=== PATIENT | female | born 1950 | race Caucasian/White ===

== ENCOUNTER 2024-10-20 08:29 | Emergency (ER) | payer MEDICARE, OTHER, SELFPAY ==
[2024-10-20 08:35] VITALS: BP 165/78
[2024-10-20 09:12] VITALS: BP 113/67; BP 114/69; BP 116/69; PULSE 48; PULSE 50; PULSE 53
[2024-10-20 09:13] VITALS: BMI 30.7
--- NOTE | 2024-10-20 09:13 | ED.GENMED ---
History of Present Illness
General
Chief Complaint: Nasal Problem
Source: patient
Time Seen by Provider: 10/20/24 09:00
History of Present Illness
History of Present Illness:
74-year-old female with past medical history of coronary artery disease status postcardiac stent, hypercholesterolemia and hypothyroidism presenting to the emergency department for evaluation after she had an unwitnessed syncopal event while in the
bathroom earlier this morning stating that she was in her shower when she started to feel lightheaded and as if she were going to pass out, attempted to get out of the shower and then syncopized striking her face onto the ground. Patient now with
swelling and pain to the nasal bridge, also noting some dried blood to the bilateral nares. Patient does endorse a slight headache. Prior to syncope she did not experience any palpitations but states she did have some palpitations while in the
waiting room here at the emergency room. She denies any fevers or recent illnesses, bowel changes or urinary symptoms, chest pain, shortness of breath, cough or any other concerns. 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 Garza, about 2
weeks ago and was given 'a [place]ub bill of health'.
Past History
Past History
ED Past Medical History: CAD, Hypercholesterolemia and Hypothyroidism
ED Past Surgical History: Cardiac and Other
Social History
Tobacco: Non-smoker
Alcohol: None
Drug: None
Living: with family
Review of Systems
Review of Systems
All Other Systems: ROS reviewed and negative except as documented in HPI and ROS
Phy Exam
Physical Exam
Physical Exam:
GENERAL: Alert , in no apparent distress
HEAD: soft tissue edema over nasal bridge with ttp
EYE: clear conjunctiva
NECK: Supple, no midline ttp
ENT: o/p clr, mmm.dried blood bilateral nares, no septal hematoma
CARDIAC: Bradycardic rate and rhythm, no murmur.
LUNGS: Clear breath sounds bilaterally, no acute respiratory distress, no wheezes/rales/rhonchi
ABDOMEN: Soft, without focal tenderness, no r/g, no cvat
NEUROLOGICAL: Alert and oriented
SKIN: Warm and dry, skin intact.
MUSCULOSKELETAL: No edema, well perfused.
PSYCH: Normal and appropriate interaction.
Scores
Heart Failure Risk
Heart Failure Risk Score: Not Applicable
Heart Score for Chest Pain Patients
STEMI patient?: Not applicable
Withdrawal Assessment of Alcohol
Withdrawal Assessment Completed?: Not applicable
Course
Orders/Labs/Results
Orders:
Orders
10/20/24 08:40
EKG [Electrocardiogram (*1)] Urgent
Reason for Study: Syncope
10/20/24 08:41
EKG- Treatment ONCE
10/20/24 09:12
CT Facial Bones W/o Iv Contras Urgent
Comment:
Reason For Exam: syncope, facial/nasal trauma
CT Head W/o Iv Contrast Urgent
Comment:
Reason For Exam: syncope, head trauma
Orthostatic VS- Treatment ONCE
0.9% Sodium Chloride 1000 ml [Nss] 1,000 ml IV BOLUS
10/20/24 09:18
Acetaminophen [Tylenol] 1,000 mg PO NOW STA
10/20/24 09:34
Basic Metabolic Panel Urgent
Complete Blood Count/With Diff Urgent
Abnormal Lab Results
10/20/24
09:34
Hct 47.7 H %
(37.0-47.0)
MCH 31.3 H pg
(27.0-31.0)
BUN 25 H mg/dl
(7-17)
10/20/24 09:34
10/20/24 09:34
Vital Signs
Initial and Last Documented VS:
Initial Vital Signs
Temp Pulse Resp BP Pulse Ox
98.2 F 51 16 165/78 98
10/20/24 08:35 10/20/24 08:35 10/20/24 08:35 10/20/24 08:35 10/20/24 08:35
Last Documented Vital Signs
Temp Pulse Resp BP Pulse Ox
98.2 F 57 18 165/78 99
10/20/24 08:35 10/20/24 09:04 10/20/24 09:04 10/20/24 08:35 10/20/24 09:04
MDM/Problems Addressed
Differential Diagnosis Includes:
Symptomatic bradycardia, orthostasis, vagal event, tachybradycardia syndrome, electrolyte derangement
MDM/Problems Addressed:
74-year-old female presenting to the emergency department for evaluation following a syncopal episode earlier this morning, patient did have prodromal symptoms prior to syncopizing. She was found to be bradycardic here with a rate around 46 to 53
bpm on telemetry. She has not had any fevers or infectious symptoms, no symptoms to suggest hypovolemia. No recent medication changes although patient is on Cardizem as part of her cardiac regimen. No beta-blockers. Will keep patient on
telemetry. Labs ordered. CT of the head and facial bones ordered. Reassessment following
*Radiology
Radiology exam reviewed: radiology read reviewed
*Pulse Oximetry
Patient hypoxic: no
*EKG
Interpreted by ED Provider?: Yes
Comparison EKG: no comparison EKG present
Heart Rate: 46
Rate: bradycardiac
Rhythm: sinus
[place]: normal axis
*Overhead Crane Truck Loader Interpretation
Rate: bradycardiac
Rhythm: sinus
*Critical Care Note
Total Time (30-74mins, 75-104mins- exclusive of procedures): Not Applicable
Patient Management
Escalation/DeEscalation of care consider admission/obs:
Patient CT of the head without any acute abnormalities. CT of the facial bones does show a nondisplaced nasal septum fracture. I reviewed nasal fracture precautions with the patient. Information for ENT was provided. Patient will follow-up with
primary care provider. Her heart rate remains in the mid to low 50s. She is aware of return precautions to the ER.
ED Attending Note
-
Portions of this chart may have been created with voice recognition software.� Occasional wrong word or��sound alike� substitutions may have occurred due to the inherent limitations of voice recognition software.
Discharge Plan
Departure
Patient Disposition: Home (Routine Discharge)
Date of Disposition: 10/20/24
Time of Disposition: 11:11
Patient with high blood pressure during this ER visit?: Yes
Discharge Problem:
Syncope, Closed fracture nasal bone
Instructions: Nose Fracture (DC), Syncope (fainting) - Discharge instructions
Referrals:
Chaz Kowalski MD [Active] - (ENT)
Andrew Munguia MD [Family Provider] -
Interventions
Interventions:
*Risk Screen - Suicide Last Done: 10/20/24 08:35
*General Assessment Last Done: 10/20/24 11:32
*Neglect/Abuse Screening Last Done: 10/20/24 08:35
ED- Fall Risk Assessment Last Done: 10/20/24 09:15
*ED COVID-19 Vaccine History Last Done: 10/20/24 11:32
*Nursing Disposition Last Done: 10/20/24 11:32
ED-EENT Assessment Last Done: 10/20/24 09:15
Discharge Date and Time
Discharge Date/Time: 10/20/24 11:35
Print Language: HEBREW
[2024-10-20] MEDS: TYLENOL 1000 MG PO (09:29)
[2024-10-20] MEDS: NSS 1000 IV (09:31)
[2024-10-20 09:54] LABS: % Basophils 1.2 % (0-2); % Eosinophils 2.3 % (0-6); % Immature Granulocytes 0.4 % (0-0.5); % Lymphocytes 28.2 % (20.5-51.1); % Monocytes 6.4 % (1.7-9.3); % Neutrophils 61.5 % (42.2-75.2); Absolute Basophils 0.1 10^3/uL (0-0.2); Absolute Eosinophils 0.2 10^3/uL (0-0.7); Absolute Lymphocytes 2.6 10^3/uL (1.2-3.4); Absolute Monocytes 0.6 10^3/uL (0.1-0.6); Absolute Neutrophils 5.5 10^3/uL (1.4-6.5); Hematocrit 47.7 % (37.0-47.0); Hemoglobin 15.9 g/dL (12.0-16.0); Mean Corp Hgb Conc. 33.3 g/dL (33.0-37.0); Mean Corpuscular Hgb 31.3 pg (27.0-31.0); Mean Corpuscular Volume 93.9 fL (81.0-99.0); Mean Platelet Volume 10.2 fL (7.4-10.4); Nucleated Red Blood Cells % 0 %; Platelet Count 292 10^3/uL (130-400); Red Blood Cell Count 5.08 10^6/uL (4.20-5.40)
[2024-10-20 09:59] LABS: Blood Urea Nitrogen 25 mg/dl (7-17); Calcium 9.4 mg/dl (8.4-10.2); Carbon Dioxide 28 mmol/L (22-30); Chloride 100 mmol/L (98-107); Estimated Creatinine Clearance 37 ml/min; Glucose 97 mg/dl (70-99); Potassium 4.4 mmol/L (3.5-5.1); Sodium 138 mmol/L (135-145); eGFR 59.86
== END 2024-10-20 11:35 | disposition home or self-care (01) ==
LOC: EMR 08:29
PROVIDERS: Physician Assistant Medical; EMERGENCY PHYSICIAN Emergency Medicine; FAMILY PHYSICIAN Family Medicine
DX: R55 Syncope and collapse (principal); S02.2XXA Fracture of nasal bones, initial encounter for closed fracture; R00.2 Palpitations; W18.39XA Other fall on same level, initial encounter; R03.0 Elevated blood-pressure reading, without diagnosis of hypertension; I25.10 Atherosclerotic heart disease of native coronary artery without angina pectoris; Z95.5 Presence of coronary angioplasty implant and graft; E03.9 Hypothyroidism, unspecified; E78.00 Pure hypercholesterolemia, unspecified
CPT/HCPCS: 99284; 96360; 70450; 70486; 80048; 85025; 93005

== ENCOUNTER 2025-01-31 17:02 | Emergency (ER) | payer MEDICARE, OTHER, SELFPAY ==
[2025-01-31 17:04] VITALS: BMI 29.8
[2025-01-31 17:08] VITALS: BP 134/82
[2025-01-31 17:20] LABS: % Basophils 0.9 % (0-2); % Eosinophils 1.4 % (0-6); % Immature Granulocytes 0.2 % (0-0.5); % Lymphocytes 24.4 % (20.5-51.1); % Monocytes 5.7 % (1.7-9.3); % Neutrophils 67.4 % (42.2-75.2); Absolute Basophils 0.1 10^3/uL (0-0.2); Absolute Eosinophils 0.1 10^3/uL (0-0.7); Absolute Lymphocytes 2.4 10^3/uL (1.2-3.4); Absolute Monocytes 0.6 10^3/uL (0.1-0.6); Absolute Neutrophils 6.7 10^3/uL (1.4-6.5); Hematocrit 43.7 % (37.0-47.0); Hemoglobin 15.2 g/dL (12.0-16.0); Mean Corp Hgb Conc. 34.8 g/dL (33.0-37.0); Mean Corpuscular Hgb 31.1 pg (27.0-31.0); Mean Corpuscular Volume 89.5 fL (81.0-99.0); Mean Platelet Volume 10.1 fL (7.4-10.4); Nucleated Red Blood Cells % 0 %; Platelet Count 262 10^3/uL (130-400); Red Blood Cell Count 4.88 10^6/uL (4.20-5.40); Red Cell Dist. Width 13.4 % (11.5-14.5); White Blood Cell Count 9.9 10^3/uL (4.8-10.8)
--- NOTE | 2025-01-31 17:31 | ED.GENMED ---
History of Present Illness
General
Chief Complaint: Dizziness
Time Seen by Provider: 01/31/25 17:30
History of Present Illness
History of Present Illness:
TIME OF INITIAL ENCOUNTER: 5:35 PM
HPI: Patient came in by ambulance from home complaining of dizziness that started this afternoon while watching the [employer] game while laying on the couch. Certain head position changes makes the symptoms worse. She started vomiting. Last month
she had a less severe vertiginous episode but also fell at that time breaking her nose. She still has ongoing nausea. No chest pain. Only other thing different today is that she did have a [employer] ([employer] cold brew today.
EXAM:
GENERAL: Well appearing in no distress
HEENT: Moist oral mucosa
CARDIOVASCULAR: No murmurs, normal heart rate, regular rhythm, No chest wall tenderness
PULMONARY: No respiratory distress, breath sounds are clear and equal
ABDOMEN: Soft with no peritoneal signs, no tenderness
NEUROLOGIC: Excellent strength all extremities, no coordination deficits, normal finger-nose testing bilaterally
PSYCHIATRIC: Appropriate mental status, normal insight and judgement
EXTREMITIES: Nontender, no edema, moves all extremities equally
SKIN: No rash, no lesions
NUMBER AND COMPLEXITY OF PROBLEMS ADDRESSED AT THE ENCOUNTER
� Chronic conditions affecting care: CAD, hypercholesterolemia, hypothyroidism
� Acute Exacerbation and/or Progression of Chronic Illness:
� Differential Diagnosis includes:
AMOUNT AND/OR COMPLEXITY OF DATA TO BE REVIEWED AND ANALYZED
� I performed an independent evaluation of and my interpretation is:
EKG: Sinus 65, nonspecific ST abnormality no significant change from 10/20/2024
CT: CT head shows no acute abnormality
X-rays:
Laboratory Studies: CBC normal chemistries unremarkable
Other:
� Review of other/old records: CAT scan of the head and facial bones showed no acute intracranial abnormality but showed a nasal bone fracture in October of this year
� Clinical information was obtained by an independent historian: Spoke to
� Prescriptions/Medications Considered but not given:
� Further testing considered but not performed:
RISK OF COMPLICATIONS AND/OR MORBIDITY OR MORTALITY OF PATIENT MANAGEMENT
� Social determinants of health affecting care: Lives at home
� Discussion with other providers:
� Escalation of care including admission/observation vs risk of discharge considered: The patient was able to walk to the bathroom without significant assistance. Will give low-dose Valium, fluids, Zofran and given her age with
rather significant symptoms associate with vomiting will obtain CT imaging of the brain.
ANY OTHER UPDATES:
7:30 PM: I reassessed patient. She feels somewhat improved after Valium and Zofran given. Workup is unremarkable. She does question if the [employer] cold brew was a contributing factor. She feels comfortable with going home and wants to go home
at this time. [place] was only borderline positive
Past History
Past History
ED Past Medical History: CAD, Hypercholesterolemia and Hypothyroidism
ED Past Surgical History: Cardiac and Other
Social History
Tobacco: Non-smoker
Alcohol: None
Drug: None
Living: with family
Phy Exam
Physical Exam
Physical Exam:
See HPI
Course
Orders/Labs/Results
Orders:
Orders
01/31/25 17:09
EKG [Electrocardiogram (*1)] Urgent
Reason for Study: Vertigo / Dizzy
EKG- Treatment ONCE
01/31/25 17:10
Basic Metabolic Panel Urgent
01/31/25 17:11
CBC/With Diff [Complete Blood Count/With Diff] Urgent
01/31/25 17:41
0.9% Sodium Chloride 1000 ml [Nss] 1,000 ml IV BOLUS
Ondansetron Injectable [Zofran] 4 mg IV NOW STA
diazePAM [Valium Injection] 2 mg IV NOW STA
01/31/25 17:42
CT Head W/o Iv Contrast Urgent
Comment:
Reason For Exam: acute vertigo vomiting severe
Abnormal Lab Results
01/31/25 01/31/25
17:10 17:11
MCH 31.1 H pg
(27.0-31.0)
Absolute Neuts (auto) 6.7 H 10^3/uL
(1.4-6.5)
BUN 23 H mg/dl
(7-17)
Glucose 101 H mg/dl
(70-99)
01/31/25 17:11
01/31/25 17:10
Vital Signs
Initial and Last Documented VS:
Initial Vital Signs
BP
134/82
01/31/25 17:08
Last Documented Vital Signs
Pulse Resp BP Pulse Ox
80 15 111/74 99
01/31/25 18:45 01/31/25 18:45 01/31/25 18:00 01/31/25 18:45
*Critical Care Note
Total Time (30-74mins, 75-104mins- exclusive of procedures): Not Applicable
ED Attending Note
-
Portions of this chart may have been created with voice recognition software.� Occasional wrong word or��sound alike� substitutions may have occurred due to the inherent limitations of voice recognition software.
Discharge Plan
Departure
Referrals:
Andrew Munguia MD [Family Provider] -
Interventions
Interventions:
*Risk Screen - Suicide Last Done: 01/31/25 17:04
*General Assessment Last Done: 01/31/25 17:04
*Neglect/Abuse Screening Last Done: 01/31/25 17:04
ED- Neurological Assessment Last Done: 01/31/25 17:13
ED- Cardiac Assessment Last Done: 01/31/25 17:13
ED Swallowing Screen Last Done: 01/31/25 17:13
Discharge Date and Time
Print Language: MOHAWK
[2025-01-31 17:38] LABS: Blood Urea Nitrogen 23 mg/dl (7-17); Calcium 9.3 mg/dl (8.4-10.2); Carbon Dioxide 23 mmol/L (22-30); Chloride 105 mmol/L (98-107); Estimated Creatinine Clearance 43 ml/min; Glucose 101 mg/dl (70-99); Sodium 139 mmol/L (135-145); eGFR > 60.00
[2025-01-31] MEDS: VALIUM INJECTION 2 MG IV (17:50)
[2025-01-31] MEDS: ZOFRAN 4 MG IV (17:50)
[2025-01-31] MEDS: NSS 1000 IV (17:52)
[2025-01-31 18:00] VITALS: BP 111/74
== END 2025-01-31 20:19 | disposition home or self-care (01) ==
LOC: EMR 17:02
PROVIDERS: EMERGENCY PHYSICIAN Emergency Medicine; FAMILY PHYSICIAN Family Medicine
DX: R42 Dizziness and giddiness (principal); R11.2 Nausea with vomiting, unspecified; I25.10 Atherosclerotic heart disease of native coronary artery without angina pectoris; E78.00 Pure hypercholesterolemia, unspecified; E03.9 Hypothyroidism, unspecified; Z88.1 Allergy status to other antibiotic agents; Z88.0 Allergy status to penicillin; Z88.2 Allergy status to sulfonamides
CPT/HCPCS: 99284; 96374; 96375; 96361; 70450; 80048; 85025; 93005

== ENCOUNTER → 2025-05-14 11:48 | Outpatient (REF) | payer MEDICARE, OTHER, SELFPAY ==
[2025-05-14 13:26] LABS: Hematocrit 43.6 % (37.0-47.0); Hemoglobin 14.6 g/dL (12.0-16.0); Mean Corp Hgb Conc. 33.5 g/dL (33.0-37.0); Mean Corpuscular Volume 93.6 fL (81.0-99.0); Nucleated Red Blood Cells % 0 %; Platelet Count 285 10^3/uL (130-400); Red Cell Dist. Width 13.7 % (11.5-14.5)
[2025-05-14 13:44] LABS: ALT (SGPT) 14 U/L (0-35); AST (SGOT) 22 U/L (14-36); Albumin 4.6 g/dl (3.5-5.0); Alkaline Phosphatase 52 U/L (38-126); Blood Urea Nitrogen 19 mg/dl (7-17); Calcium 9.5 mg/dl (8.4-10.2); Carbon Dioxide 28 mmol/L (22-30); Chloride 105 mmol/L (98-107); Glucose 98 mg/dl (70-99); Potassium 4.6 mmol/L (3.5-5.1); Sodium 140 mmol/L (135-145); Total Protein 7.5 g/dl (6.3-8.2); eGFR > 60.00
== END ==
LOC: SDSPAT 11:48
PROVIDERS: ATTENDING PHYSICIAN Student in an Organized Health Care Education/Training Program; FAMILY PHYSICIAN Family Medicine; OTHER PHYSICIAN Internal Medicine Cardiovascular Disease
DX: I25.10 Atherosclerotic heart disease of native coronary artery without angina pectoris (principal)
CPT/HCPCS: 36415; 80053; 85025; 93005

== ENCOUNTER 2025-05-17 10:07 | Day surgery (SDC) | payer MEDICARE, OTHER, SELFPAY ==
[2025-05-14 12:54] VITALS: BMI 29.4
--- NOTE | 2025-05-14 13:04 | HPS.HSE ---
Family Physician
-
Family Physician: NO INTERVIEW UNKNOWN
Chief Complaint
-
Left heart cath
History of Present Illness
74yo female with cardiac risk factors that include age, HTN, HLD, obesity, FH. She has known CAD with RCA stent placed 2008. 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 Over the last 3 months, she is
experiencing epigastric CP with exertion, relieved at rest. No associated symptoms. CTA angiography performed showed multivessel disease with severe stenosis of RCA and ostial and mid LAD. RCA stent appeared patent. We will proceed with left
heart cath.
Medical History
Past Medical History
Past Medical History: Reports Other (see below)
Additional Past Medical History:
CAD-RCA stent 2008
Hx [place] secondary to vasospasm >20yrs
HTN
HLD
Obesity BMI 29.4
Hypothyroid
DDD
Pulmonary nodule on CTA 2024
Anxiety
GERD
Cystitis
Insomnia
Past Surgical History: Reports Other (see below)
Additional Past Surgical History:
RCA stent 2008
unilateral tugal ligation w/ ooprectomy
R ING hernia
blepharplasty
Social History
Tobacco: Non-smoker
Alcohol: Occasional
Family History
Family History: CAD
Allergies / Home Medications
Allergies reflects when Allergies were last updated in [facility].
Home Medications with original date entered in [facility]
Allergy/Medication List:
Allergy:
Azithromycin
PCN
Sulfa
E-mycin
Cipro
Medication:
asa 81mg daily
Prolia 60mg SQ Q6mo
Diltiazem 240mg hs
Levothyroxine 150Mcg daily
crestor 5mg MOWEFR
Ambien 12.5mg qhs prn insomnia
Review of Systems
-
A 12 point ROS was completed and negative except as noted: Yes
Physical Exam
Physical Exam
General: Well Developed and Well Nourished
HEENT: NormoCephalic
Respiratory: Clear and Non Labored Respirations
Cardiac: S1/S2 and Regular Rhythm
GI: Soft, Non Tender and Normal Bowel Sounds
Musculoskeletal: No Edema
Neuro: AO x 3 and Cranial Nerves Intact
Impression/Plan
-
IMPRESSION/PLAN: Left heart cath
[2025-05-17] VITALS (9 sets, daily range): BP systolic 110–136; BP diastolic 61–77
[2025-05-17] MEDS: NSS 185 ML IV (11:20)
[2025-05-17 15:42] LABS: ACT-LR - POC 294 Seconds (116-155)
--- NOTE | 2025-05-17 22:01 | ITS.CL.PN ---
Mule Operator - Procedure Note
Procedure
Procedure Note:
CARDIAC CATHETERIZATION REPORT
Date of Procedure: 05/17/2025
Referring: Dr. Arsenio Joe MD
Indication: anginal chest pain, coronary CTA with severe RCA and LAD disease
PROCEDURE(S)
1. left heart catheterization
2. coronary angiography
3. iFR RCA
ACCESS: 6F right common femoral artery (closure: Angioseal x1; right radial access attempted but abandoned due to distal radial loop)
CATHETERS
1. 6F JR4
2. 6F JL3.5
3. 6F JR4 guide
MODERATE SEDATION: 35 minutes of moderate sedation was utilized. An independent medical appliance maker was present to assist with and help manage the patient's level of consciousness and physiologic status.
HEMODYNAMIC DATA
LV 118/4 (EDP 8) mmHg
AO 115/70 (mean 91) mmHg
CORONARY ANGIOGRAPHY
Dominance: Right
LM: large, normal
LAD: Large vessel giving rise to several small diagonal branches. There is extraluminal calcium but only mild luminal irregularities.
LCx: Large vessel giving rise to a moderate caliber OM1, moderate caliber OM2, and several small LPL branches. There is very focal narrowing in the mid circumflex just distal to the takeoff of the OM1. In multiple projections this appears to most
likely be not an obstructive lesion but rather a focally tortuous segment. There are otherwise trivial luminal irregularities only.
RCA: Moderate caliber vessel giving rise to a moderate caliber RPDA. There is a patent stent in the mid RCA with mild ISR. There is a 50% stenosis proximal to the stent and 40% stenosis distal to the stent.
iFR of RCA
An Omni wire was flushed and zeroed outside the body and then advanced to the ostial RCA. The wire introducer was removed and the catheter flushed with saline, after which pressure of the wire and guide were normalized. The wire was advanced to the
mid RCA and iFR recorded at 0.98. On return to the ostial RCA, iFR appropriately normalized to ~1.0, confirming lack of wire drift.
RADIATION: dose 186 mGy; DAP 15.1 Gy*cm2; fluoroscopy time 4.5 min
CONCLUSIONS
1. Nonobstructive coronary artery disease in right dominant system with iFR negative stenoses in the proximal and mid RCA and a patent mid RCA stent.
2. Normal LV filling pressure and no aortic stenosis on hemodynamic pullback
RECOMMENDATION: Aggressive secondary prevention of coronary artery disease. Consider initiation of PCSK9 inhibitor given patient's statin intolerance.
Copy to: Arsenio Joe MD (swimming pool installer and servicer); Andrew Munguia MD (PCP)
Signed: Zia Garcia MD, PhD
== END 2025-05-17 18:46 | disposition home or self-care (01) ==
LOC: CATH 10:07
PROVIDERS: ATTENDING PHYSICIAN Student in an Organized Health Care Education/Training Program; FAMILY PHYSICIAN Family Medicine; OTHER PHYSICIAN Internal Medicine Cardiovascular Disease
DX: I25.119 Atherosclerotic heart disease of native coronary artery with unspecified angina pectoris (principal); E78.5 Hyperlipidemia, unspecified; I10 Essential (primary) hypertension; E03.9 Hypothyroidism, unspecified; I25.2 Old myocardial infarction; Z79.82 Long term (current) use of aspirin; Z79.890 Hormone replacement therapy; Z82.49 Family history of ischemic heart disease and other diseases of the circulatory system; Z88.1 Allergy status to other antibiotic agents; Z88.2 Allergy status to sulfonamides; Z95.5 Presence of coronary angioplasty implant and graft; Z88.0 Allergy status to penicillin; R91.1 Solitary pulmonary nodule; F41.9 Anxiety disorder, unspecified; K21.9 Gastro-esophageal reflux disease without esophagitis; N30.90 Cystitis, unspecified without hematuria; G47.00 Insomnia, unspecified
CPT/HCPCS: 93799; 99152; 99153; 85347; 93458; C1760; C1769; C1894; Q9967